=== PATIENT | female | born 1955 | race Caucasian/White ===

== ENCOUNTER → 2017-09-21 | Outpatient (CLI) | payer OTHER ==
--- NOTE | 2017-09-21 17:47 | DIAGNOSTIC IMAGING REPORT ---
RIGHT HIP 2 VIEWS CLINICAL HISTORY: Chronic right hip pain. FINDINGS: AP and frog-leg views of the right hip are obtained. No prior studies are available for comparison at the time of dictation. The skeletal structures are osteopenic. No acute fracture is seen. There is advanced osteoarthritic change with near complete loss of the joint space involving the right hip. There is mild flattening/deformity of the femoral head. Significant bony sclerosis is noted within the femoral head and the acetabular roof. Enthesophytes arise from the femoral head. The visualized right hemipelvis appears intact. The overlying soft tissues are normal in appearance. IMPRESSION: Advanced arthritic change of the right hip as above. No acute osseous abnormality is identified. Electronically signed by: Shaquille King M.D. 09/21/2017 5:46 PM Dictated Date/Time: 09/21/2017 5:45 PM
== END | disposition home or self-care (01) ==
LOC: C.RAD 17:07
PROVIDERS: ATTEND Family Medicine
DX: M25.551 Pain in right hip (principal)

== ENCOUNTER 2018-12-03 04:53 | Inpatient (IN) ==
--- NOTE | 2018-11-20 09:50 | PAT Medication Instructions ---
Medication Instructions Date of Service November 20, 2018 Home Medications Medication Instructions Recorded lorazepam 0.5 mg tablet 0.5 mg PO TID PRN #90 tab 08/26/18 lorazepam 0.5 mg tablet 0.5 mg PO TID PRN naproxen 500 mg tablet 500 mg PO UD PRN lysine [L-Lysine] 500 mg PO UD PRN ASK your surgeon for instructions naproxen 500 mg tablet 500 mg PO UD PRN STOP taking 2 weeks before surgery (or as soon as possible if surgery is within 2 weeks) lysine [L-Lysine] 500 mg PO UD PRN Take morning of surgery With a small sip of water, OTHERWISE NOTHING TO EAT OR DRINK AFTER MIDNIGHT: lorazepam 0.5 mg tablet 0.5 mg PO TID PRN (if needed) Other Notes If you have any questions please call us at [phone] or [phone] or [phone] or [phone]
--- NOTE | 2018-11-21 14:18 | Anesthesiology Consultation ---
Date of Service November 21, 2018 Assessment & Plan (1) Encounter for pre-operative examination: Chart Review Chart Review: Pending: Refer to Additional Notes / Consult section (pending preop testing (labs, EKG, CXR)) and Patient seen in Pre Admission Testing Teaching & Discussion Pre-Anesthesia Teaching/Discussion Notes: Instructed NPO after midnight before surgery,except medications with 15 cc of water. Medication instructions provid ed according to the PAT guidelines. History Surgery Operation Date: 12/03/18 07:00 Proposed Procedures p Right Total Hip Replacement - Wicho Lambert MD Height/Weight Height: 5 ft 3 in Weight: 68 kg Allergies Allergy/AdvReac Type Severity Reaction Status Date / Time meloxicam AdvReac Unknown dyspepsia Verified 11/21/18 14:16 turmeric AdvReac Unknown dyspepsia Verified 11/21/18 14:16 TAPE Allergy Unknown localized Uncoded 11/21/18 14:16 "mild" redness Medications Home Medications Medication Instructions Recorded Confirmed Last Taken lorazepam 0.5 mg tablet 0.5 mg PO TID PRN #90 tab 08/26/18 11/13/18 Unknown naproxen 500 mg tablet 500 mg PO UD PRN 08/26/18 11/13/18 Unknown lysine [L-Lysine] 500 mg PO UD PRN 11/13/18 11/13/18 Unknown Past Medical History Medical History Anxiety Arthritis osteoarthritis History of melanoma s/p excision Exercise / Class Metabolic Activity II 4-5 Yardwork/Stairs/Walk up hill Past Surgical History Surgical History History of arthroscopy of left knee History of colonoscopy History of hysterectomy History of partial thyroidectomy d/t goiter Past Anesthesia History No Hx of Anesthesia Complications and No Family Hx of Anesthesia Complications History of PONV No Hx of PONV and Hx of Motion Sickness Social History Smoking Status: Current every day smoker tobacco type: cigarettes Smoking cigarettes per day: 2-3 CIGS/DAY; PREVIOUS HEAVIER USE Do You Dip or Chew Tobacco: No Hx Alcohol Use: Yes Alcohol type: wine alcohol intake frequency: a few times a week Hx Substance Use: No substance use type: does not use Review of Systems Patient denies chest pain, shortness of breath, dyspnea on exertion, reflux, cough, wheezing, palpitations. Physical Exam Vital Signs VITALS BP 111/69 P 78 TEMP 97.9 SP02 98%ra RESP 18 PHYSICAL Decreased cervical extension Full TMJ range of motion. TMD 3.5 finger breaths Mallampati Score 3 Dentition: intact Lungs: clear throughout to auscultation Cardiac: regular rate and rhythm, no murmurs noted Spine: normal Carotid arteries: negative bruit Extremities: no edema
--- NOTE | 2018-11-21 15:26 | XRay Report ---
XR chest Pre-admission PA/Lat CLINICAL HISTORY: Preoperative chest COMPARISON STUDY: No previous studies for comparison. FINDINGS: The cardiac and mediastinal contours are normal. There is no evidence of focal pulmonary co nsolidation. There is no evidence of failure. No pleural effusions are visualized.[ IMPRESSION: No active disease in the chest. Electronically signed by: Blair Bolanos M.D. 11/21/2018 3:25 PM
[2018-11-21 15:49] LABS: Basophils # (auto) 0.04 K/uL (0-0.2); Basophils % (auto) 0.5 %; Eosinophils # (auto) 0.06 K/uL (0-0.5); Eosinophils % (auto) 0.8 %; Hematocrit (blood only) 43.9 % (37-47); Hemoglobin 15.5 g/dL (12.0-16.0); Immature Granulocytes # (auto) 0.02 K/uL (0.00-0.02); Immature Granulocytes % (auto) 0.3 %; Lymphocytes # (auto) 1.98 K/uL (1.2-3.4); Lymphocytes % (auto) 25.3 %; Mean Corpuscular Hemoglobin 33.8 pg (25-34); Mean Corpuscular Hgb Conc 35.3 g/dL (32-36); Mean Corpuscular Volume 95.9 fL (80-100); Mean Platelet Volume 10.5 fL (7.4-10.4); Monocytes # (auto) 0.59 K/uL (0.11-0.59); Monocytes % (auto) 7.5 %; Neutrophils # (auto) 5.14 K/uL (1.4-6.5); Neutrophils % (auto) 65.6 %; Platelet Count 323 K/uL (130-400); RDW Coefficient of Variation 12.6 % (11.5-14.5); RDW Standard Deviation 43.7 fL (36.4-46.3); Red Blood Count 4.58 M/uL (4.2-5.4); White Blood Count 7.83 K/uL (4.8-10.8)
[2018-11-21 16:02] LABS: Partial Thromboplastin Ratio 0.9; Partial Thromboplastin Time 25.6 Seconds (21.0-31.0); Prothrombin Time 9.9 Seconds (9.0-12.0)
[2018-11-21 16:10] LABS: BUN Creatinine Ratio 12.6 (10-20); Blood Urea Nitrogen 11 mg/dl (7-18); Calcium 9.5 mg/dl (8.5-10.1); Carbon Dioxide 27 mmol/L (21-32); Chloride 108 mmol/L (98-107); Creatinine Clr Calc Pharmacy 60.7 ml/min; Est GFR (African American) 80.5; Est GFR (Non-African American) 69.5; Glucose 87 mg/dl (70-99); Potassium 4.5 mmol/L (3.5-5.1); Sodium 139 mmol/L (136-145)
[2018-11-21 16:11] LABS: C Reactive Protein < 0.29 mg/dl (0-0.29)
--- NOTE | 2018-11-27 22:05 | History and Physical Report ---
DATE OF ADMISSION: 12/03/2018 CHIEF COMPLAINT: Right hip pain. HISTORY OF PRESENT ILLNESS: A 63-year-old female referred by my partner, Dr. Almonte, for surgical treatment of right hip. She has a 3-year history of increasing right hip pain and discomfort that has gradually gotten worse over time. 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 Most days are pretty quiet, she is able to get through, but on weekends she has quite a bit of difficulty with walking by the end of the day. She describes groin pain and thigh pain. The more she walks, the more it hurts. She has difficulty putting her shoes and socks on. She has night pain. She would like to proceed with definitive treatment. PAST MEDICAL HISTORY: Significant for, 1. Osteoarthritis. 2. Several drinks per week. PAST SURGICAL HISTORY: Included, 1. Left knee arthroscopy. 2. Partial hysterectomy. 3. Thyroid surgery. 4. . ALLERGIES: None. CURRENT MEDICATIONS: Include, 1. Lorazepam - PRN. 2. Aleve. SOCIAL HISTORY: A 63-year-old female. She is from [place]. She works at the [employer] as a fingernail sculptor. Seven drinks per week. Half a pack of cigarettes a day for 40 years. FAMILY HISTORY: Noncontributory. REVIEW OF SYSTEMS: Negative for diabetes, neurologic problems, vascular problems, or bleeding disorders. Denies any chest pain or shortness of breath. No history of DVT or PE. Does have smoking history. PHYSICAL EXAMINATION: GENERAL: Physical examination reveals a pleasant, middle-aged female. Looks to be in pretty good health. HEENT: Benign. NECK: Supple, no lymphadenopathy. LUNGS: Clear to auscultation. HEART: Has a regular rate and rhythm. ABDOMEN: Soft, nontender, nondistended. EXTREMITIES: Grossly neurovascularly intact except as follows: Examination of the right hip reveals patient walks with a significantly antalgic gait. She limps on the right side. She is about 0.5 cm short on the right side compared to the left. She has a very stiff hip with any type of motion. She has an external rotation contracture about 10 degrees. Internal rotation recreates pain. Negative straight leg raise. X-RAYS: X-rays of the right hip reveal advanced right hip DJD. She has got complete loss of the superior joint space. She has got cystic changes and sclerosis of the femoral head and acetabulum. She has flattening of the femoral head. X-rays of the knee reveal fairly mild degenerative joint disease. ASSESSMENT: A 63-year-old female, fingernail sculptor with a history of knee scope in the past with advanced right hip degenerative joint disease. She has failed conservative treatment and would like to have her right hip replaced. PLAN: We will take her to the operating room and do a right total hip replacement. The risks and benefits of this procedure were explained to the patient including, but not limited to, DVT, PE, , infection, neurological injury, vascular injury, bleeding problem, pain, limited range of motion, stiffness, failure to relieve her symptoms, incomplete relief of symptoms, need for further surgery in the future, fracture, leg length inequality, nerve palsy, need for further surgery in the future, dislocation, need for revision surgery, incomplete relief of symptoms, etc. The patient understands and desires to proceed. Informed consent was obtained. She does have a smoking history and she will likely need a nicotine patch in the hospital. She is planning to be discharged to home with some home health and family support. I did tell we will do the best we can to make her legs equal. RAINE
[2018-12-03] MEDS ORDERED: METOCLOPRAMIDE HCL 10 MG TABLET ONE (05:47)
[2018-12-03] MEDS ORDERED: TRANEXAMIC ACID 1,000 MG **IV Pre-op IV SCH (06:00)
[2018-12-03] MEDS ORDERED: LR 60ML/HR IV SCH (06:00)
[2018-12-03] MEDS ORDERED: FAMOTIDINE 20 MG TAB PO SCH (06:00)
[2018-12-03] MEDS ORDERED: METOCLOPRAMIDE HCL 10 MG TABLET PO SCH (06:00)
[2018-12-03] MEDS ORDERED: ACETAMINOPHEN 500 MG TAB PO SCH (06:00)
[2018-12-03] MEDS ORDERED: CEFAZOLIN 2000MG 2,000 MG/15 ML SYR IV SCH (06:00)
[2018-12-03] MEDS ORDERED: GABAPENTIN 600 MG DOSE PO SCH (06:00)
[2018-12-03] MEDS ORDERED: LR 500ML BOLUS, THEN 15ML/HR IV SCH (06:00)
[2018-12-03] MEDS ORDERED: SCOPOLAMINE 1.5 MG TDSY TD SCH (06:00)
[2018-12-03] MEDS ORDERED: BUPIVACAINE 0.5 % 5 MG/1 ML PF 10ML VIAL ONE (06:23)
[2018-12-03] MEDS ORDERED: fentaNYL citrate 100 MCG/2 ML VIAL ONE (06:31)
[2018-12-03] MEDS ORDERED: MIDAZOLAM HCL 1 MG/ML 2ML VIAL ONE ×3 (06:31→07:55)
[2018-12-03] MEDS ORDERED: BUPIVACAINE/EPINEPHRINE 0.5% MPF 1:200,000 30 ML VIAL ONE (06:37)
[2018-12-03] MEDS ORDERED: BACITRACIN INJ 50,000 UNIT VIAL ONE (06:37)
[2018-12-03] MEDS ORDERED: MoRPHine SULFATE PF 1 MG/ML 10 ML AMP/VIAL ONE (06:41)
[2018-12-03] MEDS ORDERED: SODIUM CHLORIDE 0.9% 1000ML 1,000 ML IV SCH (06:45)
[2018-12-03] MEDS ORDERED: NALOXONE HCL 0.4 MG/1 ML VIAL/CARP IV PRN ×2 (06:45→10:40)
[2018-12-03] MEDS ORDERED: NO NARCOTICS OR SEDATIVES SCH (06:45)
[2018-12-03] MEDS ORDERED: DC INTRASPINAL MORPHINE SCH (06:45)
[2018-12-03] MEDS ORDERED: NALOXONE HCL 1 MG in SODIUM CHLORIDE 0.9% 1000ML 1,000 ML IV PRN (06:45)
[2018-12-03] MEDS ORDERED: LACTATED RINGER'S 500 ML IV PRN (06:45)
[2018-12-03] MEDS ORDERED: ONDANSETRON INJ 2 MG/ML 2 ML VIAL IV PRN ×2 (06:45→10:40)
[2018-12-03] MEDS ORDERED: MoRPHine SULFATE PF 1 MG/ML 10 ML AMP/VIAL INT SPINAL ONE (06:45)
[2018-12-03] MEDS ORDERED: KETOROLAC 30 MG/ML VIAL IV PRN (06:45)
[2018-12-03] MEDS ORDERED: PROMETHAZINE HCL 12.5 MG in SODIUM CHLORIDE 0.9% 50 ML IV PRN (06:45)
[2018-12-03] MEDS ORDERED: NALOXONE HCL 0.08 MG in SYRINGE 1.8 ML IV PRN (06:45)
[2018-12-03] MEDS ORDERED: MEPERIDINE HCL 25 MG/ML CARP IV PRN (06:45)
[2018-12-03] MEDS ORDERED: NALBUPHINE HCL INJ 10 MG/ML AMP IV PRN (06:45)
[2018-12-03] MEDS ORDERED: DiphenhydrAMINE HCL 50 MG/ML VIAL IV PRN (06:45)
--- NOTE | 2018-12-03 06:51 | History & Physical Bridge Note ---
Date of Service December 03, 2018 History & Physical Bridge Note I have examined the patient, reviewed the History & Physical and in the interval since the performance of the History & Physical I have noted the following changes of clinical significance: no changes noted
[2018-12-03] MEDS ORDERED: KETAMINE HCL INJ 50 MG/ML 10 ML VIAL ONE (07:07)
[2018-12-03] MEDS ORDERED: GLYCOPYRROLATE 0.2 MG/ML VIAL ONE (07:11)
[2018-12-03] MEDS ORDERED: PROPOFOL IV EMULSION 10 MG/ML 20 ML VIAL IV ONE ×2 (07:11→07:12)
[2018-12-03] MEDS ORDERED: PHENYLEPHRINE 100MCG/ML 5ML SYR ONE (07:22)
[2018-12-03] MEDS ORDERED: PHENYLEPHRINE HCL 10 MG/ML VIAL ONE (07:38)
--- NOTE | 2018-12-03 08:37 | Post Operative Brief Note ---
PG Immediate Post Op with CF Date of Surgery December 03, 2018 Pre & Post Diagnosis Operation Date: 12/03/18 07:00 Pre-Op Diagnosis: Right Hip Advanced Degenerative Joint Disease Post-Op Diagnosis: Right Hip Advanced Degenerative Joint Disease I identified the patient and participated in the time-out.: Yes Procedure Operation Date: 12/03/18 07:00 Actual Procedures p Right Total Hip Arthroplasty--Uncemented(Right) - Wicho Lambert MD Surgeon Wicho Lambert MD Crystal Slicer None Estimated Blood Loss 200 Findings Consistent with Post-Op Diagnosis Fluids 1500 cc Specimens Specimen Description: A. Right Femoral Head Drains Rae Catheter (A 16 Czech rae catheter was inserted by Chel Staples RN, without difficulty, clear yellow urine obtained, output to be monitored by Anesthesia.) Anesthesia Type Spinal MAC Complications none Disposition Accompanied Patient To Recovery: Yes Disposition: Recovery Room
[2018-12-03] MEDS: ePHEDrine sulfate 50 MG/ML AMP IV PRN ×2 (09:07→09:20)
--- NOTE | 2018-12-03 09:10 | Operative Report ---
DATE OF OPERATION: 12/03/2018 SURGEON: Wicho Lambert MD PRESCHOOL HEAD TEACHER: None. PREOPERATIVE DIAGNOSIS: Right hip degenerative joint disease. POSTOPERATIVE DIAGNOSIS: Right hip degenerative joint disease. PROCEDURE PERFORMED: Right uncemented ceramic on highly cross-linked polyethylene total hip arthroplasty. COMPLICATIONS: None. ESTIMATED BLOOD LOSS: 200 mL. FLUID REPLACEMENT: 1500 mL crystalloid fluid replacement. ANESTHESIA: Spinal. DRAINS: None. SPECIMENS: Right femoral head sent for pathology. 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 Became more debilitating in the part where she was having difficulty doing her job. X-rays showed advanced hip DJD. She failed conservative treatment and elected to proceed with operative intervention. OPERATIVE FINDINGS: Operative findings revealed advanced right hip DJD. She had grade 4 [id number] disease of the femoral head and acetabulum. She had fairly good cortices, but her cancellous bone was not real robust. Some anterior acetabular osteophytes. Small joint effusion. Some moderate synovitis. OPERATIVE IMPLANTS: Operative implants consisted of: 1. A Biomet G7 size 50 mm acetabular shell. 2. A 6.5 cancellous acetabular screws, 1 at 35 mm in length and 1 at 25 mm in length. 3. An apex hole eliminator. 4. A highly cross-linked polyethylene liner with a 50 mm outer diameter and 32 mm inner diameter. 5. DePuy Corail size 11 KLA femoral stem. 6. A +1/32 mm ceramic articular ball. OPERATIVE PROCEDURE: The patient was taken to the operating room, identified and placed on the operating table in supine position. All contact areas were appropriately padded. IV antibiotics provided by anesthesia team. Spinal anesthetic had been implemented in the holding area. Dobbins catheter was placed in sterile fashion. The patient was then placed in the left lateral decubitus position. An axillary roll was placed. Stlberg hip positioner was used for positioning. Right hip and leg were then prepped and draped in usual sterile fashion. A posterolateral approach of the right hip was then performed through a curvilinear incision centered over the greater trochanter. Sharp dissection was carried through subcutaneous tissue down to the level of the IT band and gluteal fascia. The IT band and gluteal fascia were then incised longitudinally in line with skin incision. The underlying greater trochanteric bursa was excised. The piriformis and external rotators and posterior capsule were taken down as a single layer with great care taken to protect the sciatic nerve at all times. Hip was internally rotated and dislocated. Femoral neck osteotomy cut was made with the final cut about 8 mm above the lesser trochanter. Femoral head was removed and sent for pathology. The femur was retracted anteriorly. Attention was then drawn to the acetabulum. The acetabulum labrum was excised. The pulvinar fat was excised. Sequential reaming of the acetabulum was then performed beginning with a size 43 and progressing up to 49. A 50 mm Biomet G7 acetabular shell was then placed in about 40 degrees of lateral opening and 20 degrees of anteversion. It was fixed with two 6.5 cancellous acetabular screws. An anterior osteophyte was removed. A trial liner was placed. Attention was then drawn to the femur. The proximal femur was entered with Razerie cutter followed by canal finder. I then broached beginning with a size 8 and progressed to 11. We got an excellent fit at 11. A calcar reamer was used to smoothen off the calcar. I then trialed the hip. The +5 articular ball just seemed a little tight. The +1 seemed to fit appropriately. She seemed to restore appropriate soft tissue tension and leg lengths appeared equal. Hip was fully stable in full extension and external rotation and flexion to 90 degrees, internal rotation to over [address] I elected to place these implants. All trial implants were removed. An apex hole eliminator was placed. A highly cross-linked polyethylene liner was placed. A DePuy Corail size 11 KLA femoral stem was impacted in position. A +1/32 mm ceramic articular ball was placed. Hip was located and once again found to be stable. Attention was then drawn toward closing. The wound was irrigated with copious amounts of pulsatile lavage solution. I did inject locally with 60 mL of 0.5% Marcaine with epinephrine. The posterior capsule and external rotators were repaired as a single layer through drill holes in the posterior trochanter with #2 Ti-Cron suture. The IT band and gluteal fascia were then closed with #1 PDS suture in running fashion. Subcutaneous tissue was then closed with 2 layers, the deep layer with #1 Vicryl suture and subcutaneous tissues with 2-0 Dexon suture in a buried interrupted fashion. Skin was closed with skin len. Leg was then cleaned and dried and a sterile dressing with Xeroform, 4 x 4's, ABD pad and foam tape was applied. The patient was then transferred to the recovery room in stable condition. The patient tolerated the procedure well with no complications. All needle and sponge counts were correct at the end of the operation. I attest to the content of the Intraoperative Record and any orders documented therein. Any exception s are noted below.
--- NOTE | 2018-12-03 09:24 | XRay Report ---
XR hip 1V RT w pelvis CLINICAL HISTORY: IN PACU - A/P PELVIS and LATERAL HIP COMPARISON: 09/21/2017 DISCUSSION: Anatomic alignment posttotal right hip arthroplasty. Good contact between prosthetic and underlying bone. Expected soft tissue postoperative change IMPRESSION: Anatomic alignment posttotal right hip arthroplasty. The above report was generated using voice recognition software. It may contain grammatical, syntax or spelling errors. Electronically signed by: Flip Mariano M.D. 12/03/2018 9:23 AM
--- NOTE | 2018-12-03 10:09 | Anesthesiology Progress Note ---
Date of Service December 03, 2018 Anesthesia Post Procedure Vital Signs Vital Signs: Temp Pulse Pulse Resp BP Pulse Ox 12/03/18 10:00 78 10 L 101/58 L 98 12/03/18 09:45 36.5 C 73 14 102/64 100 12/03/18 09:35 81 24 103/64 100 12/03/18 09:25 86 21 100/70 100 12/03/18 09:15 88 19 95/61 L 97 12/03/18 09:05 80 13 71/54 L 96 12/03/18 08:55 76 20 80/52 L 95 12/03/18 08:45 76 18 82/56 L 100 12/03/18 08:38 36.9 C 79 15 83/57 L 95 12/03/18 05:23 36.7 C 86 18 110/75 97 Pain Intensity Right Hip: Pain Intensity: 0 Transfer of Care Handoff Completed per policy Notes Mental Status: alert / awake / arousable Patient Amnestic to Procedure: Yes Nausea / Vomiting: adequately controlled Pain: adequately controlled Airway Patency, RR, SpO2: stable & adequate BP & HR: stable & adequate Hydration State: stable & adequate Neuraxial Anesthesia: was administered and sensory block is resolving Anesthetic Complications: no major complications apparent
[2018-12-03] MEDS ORDERED: NON-FORMULARY MEDICATION (Lysine [L-Lysine] 500 MG) PO PRN (10:40)
[2018-12-03] MEDS ORDERED: HYDROmorphone INJ 0.5 MG/0.5 ML SYR IV PRN (10:40)
[2018-12-03] MEDS ORDERED: BISACODYL 10 MG SUPP PR PRN (10:40)
[2018-12-03] MEDS ORDERED: METOCLOPRAMIDE HCL INJ 5 MG/ML 2 ML VIAL IV PRN (10:40)
[2018-12-03] MEDS ORDERED: THIAMINE HCL 50 MG TABLET PO SCH (10:40)
[2018-12-03] MEDS ORDERED: MAGNESIUM HYDROXIDE SUSP 30 ML UDC PO PRN (10:40)
[2018-12-03] MEDS ORDERED: TRAMADOL HCL 50 MG TABLET PO PRN (10:40)
[2018-12-03] MEDS ORDERED: LORazepam 0.5 MG TAB PO PRN (10:40)
[2018-12-03] MEDS: SODIUM CHLORIDE 0.9% 1000ML 1,000 ML IV SCH ×2 (11:04→20:10)
[2018-12-03] MEDS: DOCUSATE SODIUM 100 MG CAP PO SCH ×2 (12:08→20:10)
[2018-12-03] MEDS: NICOTINE 7 MG/24 HR TDSY TD SCH (12:09)
[2018-12-03] MEDS: FOLIC ACID 1 MG TAB PO SCH (12:09)
[2018-12-03] MEDS: MULTIVITAMIN TAB PO SCH (12:09)
[2018-12-03] MEDS: KETOROLAC 30 MG/ML VIAL IV SCH ×3 (12:10→23:50)
[2018-12-03] MEDS: THIAMINE HCL 100 MG TAB PO SCH (13:57)
[2018-12-03] MEDS: ACETAMINOPHEN 500 MG TAB PO SCH ×2 (13:58→22:11)
[2018-12-03] MEDS: ASPIRIN 81 MG ECTAB PO SCH ×2 (13:58→20:10)
[2018-12-03] MEDS: CEFAZOLIN 1000MG 1,000 MG/7.5 ML SYR IV SCH ×2 (14:25→22:11)
[2018-12-03] MEDS ORDERED: TRANEXAMIC ACID 1,000 MG in 0.9 % SODIUM CHLORIDE 100 ML IV SCH (14:38)
[2018-12-03] MEDS: CHECK SCOPOLAMINE PATCH PLACEMENT SCH ×2 (15:28→23:50)
[2018-12-03] MEDS: FERROUS GLUCONATE 324 MG TAB PO SCH (16:38)
[2018-12-03] MEDS: ASCORBIC ACID 500 MG TAB PO SCH (16:38)
--- NOTE | 2018-12-03 18:39 | Progress Note ---
DATE: 12/03/2018 SUBJECTIVE: A 63-year-old female postop from a right hip replacement. She is doing well. Not having any pain yet. No chest pain or shortness of breath. Not feeling dizzy or lightheaded. OBJECTIVE: VITAL SIGNS: Temperature 36.7. Vital signs stable. Little hypotensive, but asymptomatic. GENERAL: Reveals a pleasant, middle-aged female. She is lying in bed, looks comfortable. She is awake, alert, appropriate and oriented. LUNGS: Clear to auscultation. HEART: Has a regular rate and rhythm. ABDOMEN: Soft, nontender, nondistended. EXTREMITIES: Grossly neurovascularly intact except as follows: Examination of the right lower extremity reveals the leg lengths to be equal. Her hip is located. She can dorsiflex and plantarflex her foot appropriately. She is neurologically intact. X-RAYS: X-rays of the right hip from recovery room reviewed. It shows right uncemented total hip arthroplasty. Components looked to be in good position. No signs of problems. ASSESSMENT: A 63-year-old female postop from right hip replacement, doing well. Pain is controlled. Hip is located. She is neurologically intact. PLAN: 1. DVT prophylaxis including thigh-high TEDs, SCDs, and aspirin twice a day. 2. PT/OT. Weight bear as tolerated. Right total hip protocol. 3. Pain control, doing well with current pain regimen. 4. Smoking history. She has a low level nicotine patch in place. 5. Alcohol history. We will use thiamine and folic acid. She takes benzodiazepines p.r.n. for anxiety and we will use that. 6. Disposition: Plan to discharge to home with some home health along with family members once medically stable and recovered.
[2018-12-03] MEDS: SENNA 8.6 MG TAB PO SCH (20:10)
[2018-12-04 05:22] LABS: Basophils # (auto) 0.01 K/uL (0-0.2); Basophils % (auto) 0.1 %; Eosinophils # (auto) 0.06 K/uL (0-0.5); Eosinophils % (auto) 0.7 %; Hematocrit (blood only) 31.5 % (37-47); Immature Granulocytes # (auto) 0.01 K/uL (0.00-0.02); Immature Granulocytes % (auto) 0.1 %; Lymphocytes # (auto) 1.35 K/uL (1.2-3.4); Lymphocytes % (auto) 15.2 %; Mean Corpuscular Hemoglobin 33.5 pg (25-34); Mean Corpuscular Hgb Conc 34.9 g/dL (32-36); Monocytes # (auto) 0.82 K/uL (0.11-0.59); Monocytes % (auto) 9.2 %; Neutrophils # (auto) 6.62 K/uL (1.4-6.5); Neutrophils % (auto) 74.7 %; Platelet Count 177 K/uL (130-400); RDW Coefficient of Variation 12.5 % (11.5-14.5); RDW Standard Deviation 43.8 fL (36.4-46.3); Red Blood Count 3.28 M/uL (4.2-5.4); White Blood Count 8.87 K/uL (4.8-10.8)
[2018-12-04] MEDS: ACETAMINOPHEN 500 MG TAB PO SCH ×3 (05:50→21:05)
[2018-12-04] MEDS: KETOROLAC 30 MG/ML VIAL IV SCH ×3 (05:50→17:13)
[2018-12-04 05:52] LABS: BUN Creatinine Ratio 12.4 (10-20); Calcium 7.7 mg/dl (8.5-10.1); Creatinine Clr Calc Pharmacy 59.3 ml/min; Est GFR (African American) 78.4; Est GFR (Non-African American) 67.6; Potassium 3.5 mmol/L (3.5-5.1)
[2018-12-04] MEDS ORDERED: NALOXONE HCL 0.4 MG/1 ML VIAL/CARP IV PRN (06:23)
[2018-12-04] MEDS ORDERED: ONDANSETRON INJ 2 MG/ML 2 ML VIAL IV PRN (06:24)
[2018-12-04] MEDS ORDERED: LORazepam 0.5 MG TAB PO PRN (06:24)
[2018-12-04] MEDS ORDERED: HYDROmorphone INJ 0.5 MG/0.5 ML SYR IV PRN (06:24)
[2018-12-04] MEDS ORDERED: TRAMADOL HCL 50 MG TABLET PO PRN (06:25)
--- NOTE | 2018-12-04 08:11 | Anesthesiology Progress Note ---
Date of Service December 04, 2018 Anesthesia Post Procedure Vital Signs Vital Signs: Temp Pulse Pulse Resp BP BP Pulse Ox 12/04/18 08:02 90/50 L 96 12/04/18 07:19 37.3 C 81 17 92/55 L 97 12/04/18 06:28 88/52 L 12/04/18 03:22 37.6 C H 85 15 88/53 L 95 12/04/18 00:20 16 94 12/03/18 23:47 37.5 C 94 H 16 96/59 L 93 12/03/18 23:20 16 93 12/03/18 22:20 15 94 12/03/18 21:20 15 95 12/03/18 19:35 36.7 C 74 24 91/55 L 92 12/03/18 19:20 19 93 12/03/18 17:15 91/58 L 12/03/18 16:43 36.7 C 66 16 83/50 L 96 12/03/18 16:30 18 97 12/03/18 15:25 16 99 12/03/18 13:21 36.5 C 82 14 92/53 L 98 12/03/18 12:16 14 98 12/03/18 12:15 36.5 C 70 14 96/60 L 99 12/03/18 11:20 75 16 96/59 L 98 12/03/18 11:13 81 16 90/55 L 12/03/18 10:50 36.5 C 76 12 91/63 L 99 12/03/18 10:20 36.5 C 85 14 95/59 L 92 12/03/18 10:00 78 10 L 101/58 L 98 12/03/18 09:45 36.5 C 73 14 102/64 100 12/03/18 09:35 81 24 103/64 100 12/03/18 09:25 86 21 100/70 100 12/03/18 09:15 88 19 95/61 L 97 12/03/18 09:05 80 13 71/54 L 96 12/03/18 08:55 76 20 80/52 L 95 12/03/18 08:45 76 18 82/56 L 100 12/03/18 08:38 36.9 C 79 15 83/57 L 95 Pulse Ox 12/04/18 08:02 12/04/18 07:19 12/04/18 06:28 12/04/18 03:22 12/04/18 00:20 12/03/18 23:47 12/03/18 23:20 12/03/18 22:20 12/03/18 21:20 12/03/18 19:35 12/03/18 19:20 12/03/18 17:15 12/03/18 16:43 12/03/18 16:30 12/03/18 15:25 12/03/18 13:21 12/03/18 12:16 12/03/18 12:15 12/03/18 11:20 12/03/18 11:13 12/03/18 10:50 12/03/18 10:20 92 12/03/18 10:00 12/03/18 09:45 12/03/18 09:35 12/03/18 09:25 12/03/18 09:15 12/03/18 09:05 12/03/18 08:55 12/03/18 08:45 12/03/18 08:38 Pain Intensity Right Hip: Pain Intensity: 0 Notes Mental Status: alert / awake / arousable Nausea / Vomiting: adequately controlled Pain: adequately controlled Airway Patency, RR, SpO2: stable & adequate BP & HR: stable & adequate Hydration State: stable & adequate Neuraxial Anesthesia: was administered and sensory block resolved Anesthetic Complications: no major complications apparent and Pt Satisfied with anesthetic care
[2018-12-04] MEDS: ASCORBIC ACID 500 MG TAB PO SCH ×2 (08:23→17:13)
[2018-12-04] MEDS: THIAMINE HCL 100 MG TAB PO SCH (08:23)
[2018-12-04] MEDS: DOCUSATE SODIUM 100 MG CAP PO SCH ×2 (08:24→21:06)
[2018-12-04] MEDS: MULTIVITAMIN TAB PO SCH (08:24)
[2018-12-04] MEDS: FOLIC ACID 1 MG TAB PO SCH (08:24)
[2018-12-04] MEDS: FERROUS GLUCONATE 324 MG TAB PO SCH ×2 (08:24→17:12)
[2018-12-04] MEDS: ASPIRIN 81 MG ECTAB PO SCH ×2 (08:24→21:05)
[2018-12-04] MEDS: NICOTINE 7 MG/24 HR TDSY TD SCH (08:27)
--- NOTE | 2018-12-04 13:58 | Progress Note ---
DATE: 12/04/2018 SUBJECTIVE: A 63-year-old female postop day 1 from right hip replacement. She is doing pretty well. A little bit more painful than she was yesterday. She has been doing therapy, getting around reasonably well. No chest pain or shortness of breath. Not feeling dizzy or lightheaded. OBJECTIVE: VITAL SIGNS: Temperature 36.8. Vital signs stable. GENERAL: Shows a pleasant, middle-aged female. She is sitting up in her bedside chair, looks pretty comfortable. EXTREMITIES: Examination of the right hip reveals the leg lengths are equal. Dressing is clean, dry and intact. Thigh is soft and supple. Hip is located. She is neurologically intact. LABORATORY DATA: Hemoglobin 11.0. Hematocrit 31.5. Electrolytes are stable. ASSESSMENT: A 63-year-old white female postoperative day 1 from right hip replacement, doing pretty well. Pain is controlled. Therapy went reasonably well. PLAN: 1. DVT prophylaxis including thigh-high TEDs, SCDs, and aspirin twice a day. 2. PT/OT. Weight bear as tolerated. Right total hip protocol. She can weightbear as tolerated. Obey hip precautions. 3. Pain control, doing okay with current pain regimen. 4. Disposition: She is hoping to be discharged home likely with some home health and family's assistance once stable and appropriately recovered for discharge.
[2018-12-04] MEDS: SENNA 8.6 MG TAB PO SCH (21:06)
[2018-12-05] MEDS: KETOROLAC 30 MG/ML VIAL IV SCH ×2 (00:20→06:05)
[2018-12-05] MEDS: ACETAMINOPHEN 500 MG TAB PO SCH (06:05)
[2018-12-05 07:07] VITALS: PULSE 88; TEMP 98.1; O2SAT 94
--- NOTE | 2018-12-05 07:36 | Progress Note ---
DATE: 12/05/2018 SUBJECTIVE: A 63-year-old white female postop day 2 from right hip replacement. She is doing pretty well. Not much pain at all while lying still, but some pain with ambulating. No chest pain or shortness of breath. Not feeling dizzy or lightheaded. OBJECTIVE: VITAL SIGNS: Temperature 36.7. Vital signs stable. GENERAL: Shows a pleasant, middle-aged female. She is lying in bed, looks pretty comfortable. EXTREMITIES: Examination of the right hip and leg reveals the dressing to be clean, dry and intact. Thigh is soft and supple. No significant drainage. Hip is located. She is neurologically intact. ASSESSMENT: A 63-year-old white female postop day 2 from a right hip replacement, doing pretty well. Pain is reasonably well controlled. Hip is located. She is neurologically intact. PLAN: 1. DVT prophylaxis including thigh-high TEDs, SCDs, and aspirin twice daily. 2. PT/OT. Weight bear as tolerated. Right total hip protocol. 3. Pain control, doing well with current pain regimen. 4. Disposition: Plan to discharge to home with some home health later today.
[2018-12-05 07:40] VITALS: BP 102/64
[2018-12-05] MEDS: NICOTINE 7 MG/24 HR TDSY TD SCH (08:10)
[2018-12-05] MEDS: THIAMINE HCL 100 MG TAB PO SCH (08:11)
[2018-12-05] MEDS: FOLIC ACID 1 MG TAB PO SCH (08:11)
[2018-12-05] MEDS: ASPIRIN 81 MG ECTAB PO SCH (08:11)
[2018-12-05] MEDS: ASCORBIC ACID 500 MG TAB PO SCH (08:11)
[2018-12-05] MEDS: MULTIVITAMIN TAB PO SCH (08:11)
[2018-12-05] MEDS: FERROUS GLUCONATE 324 MG TAB PO SCH (08:12)
[2018-12-05] MEDS: DOCUSATE SODIUM 100 MG CAP PO SCH (08:12)
--- NOTE | 2018-12-07 00:51 | Discharge Summary ---
ADMITTING PHYSICIAN AND SURGEON: Wicho Lambert MD ADMITTING DIAGNOSIS: Right hip degenerative joint disease. SURGERY PERFORMED: Right total hip arthroplasty. SECONDARY DIAGNOSIS: Osteoarthritis. CONSULTS: None obtained. HISTORY AND PHYSICAL EXAMINATION: Well documented in the patient's chart. HOSPITAL COURSE: The patient was admitted on 12/03/2018, underwent total hip arthroplasty, tolerated the procedure well. There were no complications. She was transferred to the PACU postoperatively and later to the orthopedic floor for further care. She was given Ancef for antibiotic prophylaxis, thromboembolic deterrent stockings, sequential compression devices and aspirin for deep venous thrombosis prophylaxis. Hemoglobin, hematocrit and vital signs were monitored during her hospital stay and remained stable. She did not require blood transfusions. There were no complications. On postoperative day 2, she was tolerating a regular diet, pain was controlled with oral pain medicine. She was participating in physical therapy. On postoperative day 2, she was discharged home, set up with home health services. She was given printed discharge instructions as well as new prescriptions for extra strength Tylenol, aspirin and tramadol. Continue home medications, continue physical therapy, weightbearing as tolerated, thromboembolic deterrent stockings. Follow up approximately 2 weeks postoperative or sooner if there are any problems or concerns.
== END 2018-12-05 12:22 | disposition home health service (06) | DRG 470 ==
LOC: ASU 04:53 → 3E 08:41